=== PATIENT | male | born 1960 | race Caucasian/White ===

== ENCOUNTER 2025-01-20 09:49 | Outpatient (CLI) | payer OTHER | END 2025-01-20 09:50 | disposition home or self-care (01) | LOC: PET 09:49 | PROVIDERS: ATTEND Radiology Radiation Oncology | DX: C09.9 Malignant neoplasm of tonsil, unspecified (principal); J39.8 Other specified diseases of upper respiratory tract | CPT/HCPCS: 78815; A9552 ==